=== PATIENT | female | born 1970 | race Caucasian/White ===

== ENCOUNTER 2019-08-01 08:37 | Emergency (ER) | payer MEDICARE ==
[~2019-08-01] VITALS: Ht 167.6 cm; Wt 122.9 kg
[~2019-08-01 08:37] MED LIST: ALMASICH; ALPR.5; ALUMAG30SU PO; AVONEX PEN30 MCG/0.5 IM; Alprazolam0.5 MG PO; BUME1 PO; CEPH500 PO; CHOL10002; CIPR500 PO; CLIN300; CLIN300 PO; Cleocin HCl300 MG PO; Cyclobenzaprine5 MG PO; DESV50; DESV50 PO; ESTR1; ESTR2 PO; FURO40; FURO80; FURO80 PO; HYDACE5; HYDACE5 PO; HYDR-86 PO; HYOS.125; IBUHYD PO; IBUP800 PO; INTE30I; INTE30I SC; KETO10 PO; MAGCHL64ER; MAGCIT300 PO; MAGNESIUM PO; METF500; METF500 PO; Maxalt10 MG; Moviprep Powde1 EACH; NUVIGIL150 MG; NUVIGIL50 MG; OMEP20ER PO; ONDA4ODT; ONDA4ODT MM; OXYACE5T; OXYACE5T PO; Omeprazole20 M1 PO; POTCHL10ER; POTCHL20ER; POTCHL20ER PO; PRED10 PO; PRED20 PO; PROM25; PROM25 PO; Percocet 5-3251 EACH PO; Phenergan25 M1 PO; Prednisone10 MG; Prednisone20 MG PO; RIZATRIPTAN10 MG PO; RIZATRIPTAN10 MG SL; SPIR25; SPIR25 PO; Spironolactone25 MG PO; TRAZ50; TRAZ50 PO; Trazodone HCl300 MG PO; VICODIN ES 7.51 EACH; Zofran Odt4 MG SL; [UNRECOGNIZED DRUG - REMARK]
[2019-08-01] MEDS ORDERED: Prazosin HCl2 MG PO (09:04)
[2019-08-01] MEDS ORDERED: Potassium Chlo20 ME1 PO (09:04)
[2019-08-01] MEDS ORDERED: DESVENLAFAXINE100 M3 PO (09:05)
[2019-08-01] MEDS ORDERED: TECFIDERA240 MG PO (09:05)
[2019-08-01] MEDS ORDERED: FURO80 PO (09:10)
[2019-08-01 09:21] LABS: Source, Urine Clean Catch
[2019-08-01 09:31] LABS: BASOPHILS ABSOLUTE AUTO 0.02 K/mm3 (0.00-0.23); BASOPHILS PERCENT AUTO 0 % (0-2); EOSINOPHILS ABSOLUTE AUTO 0.08 K/mm3 (0.00-0.68); EOSINOPHILS PERCENT AUTO 2 % (0-6); Hematocrit 45.2 % (33.0-51.0); IMMATURE GRAN ABSOLUTE AUTO 0.01 K/mm3 (0.00-0.10); IMMATURE GRAN PERCENT AUTO 0 % (0-1); LYMPHOCYTES ABSOLUTE AUTO 0.63 K/mm3 (0.84-5.20); LYMPHOCYTES PERCENT AUTO 12 % (21-46); MONOCYTES ABSOLUTE AUTO 0.62 K/mm3 (0.16-1.47); MONOCYTES PERCENT AUTO 12 % (4-13); Mean Corpuscular HGB 32.1 pg (26.0-34.0); Mean Corpuscular HGB Conc 35.4 g/dL (31.5-36.5); Mean Corpuscular Volume 91 fL (80-100); Mean Platelet Volume 10.3 fL (9.1-12.4); NEUTROPHILS ABSOLUTE AUTO 3.75 K/mm3 (1.96-9.15); NEUTROPHILS PERCENT AUTO 73 % (41-73); Platelet Count 200 K/mm3 (150-400); RDW Coefficient Variation 12.4 % (11.7-14.2); RDW Standard Deviation 40.9 fL (35.1-46.3); Red Blood Cell Count 4.98 M/mm3 (3.80-5.20); White Blood Cell Count 5.11 K/mm3 (4.00-11.30)
[2019-08-01 09:50] LABS: Alanine Aminotransfer (ALT/SGP 87 U/L (12-78); Albumin, Blood 4.7 g/dL (3.4-5.0); Albumin/Globulin Ratio 1.3 (0.8-1.8); Alk Phos 77 U/L (50-136); Anion Gap 7 mmol/L (6-16); Aspartate Aminotrans (AST/SGOT 52 U/L (12-37); Bilirubin, Total 0.7 mg/dL (0.1-1.0); Blood Urea Nitrogen 13 mg/dL (8-24); Bun/Creatinine Ratio 15.9 (12.0-20.0); CO2, Blood 26 mmol/L (21-32); Calcium, Blood 9.8 mg/dL (8.5-10.1); Chloride, Blood 102 mmol/L (98-108); Creatinine, Blood 0.82 mg/dL (0.40-1.00); Globulin, Blood 3.6 g/dL (2.2-4.0); Glomerular Filtration Rate >60 (60-); Glucose, Blood 127 mg/dL (70-99); Potassium, Blood 3.7 mmol/L (3.5-5.5); Sodium, Blood 135 mmol/L (136-145); Total Protein, Blood 8.3 g/dL (6.4-8.2)
[2019-08-01 09:51] LABS: Bilirubin, Urine Neg (Neg); Blood, Urine Neg (Neg); Glucose Qualitative, Urine Neg (Neg); Ketones, Urine 3+ (Neg); Leukocyte Esterase, Urine Neg (Neg); Nitrite, Urine Neg (Neg); Protein, Urine 2+ (Neg); Urobilinogen, Urine NORM (Normal)
[2019-08-01 10:25] LABS: Appearance, Urine Cloudy (Clear); Color, Urine Yellow (P-Yellow)
[2019-08-01 10:28] LABS: Bacteria Mod /hpf; Red Blood Cells, Urine 0-2 /hpf (0-2); Squamous Epithelial Cells Few /hpf (Few)
[2019-08-01] MEDS ORDERED: Robaxin-750750 MG PO (11:45)
[2019-08-01] MEDS ORDERED: Keflex500 MG PO (11:45)
[2019-08-01] MEDS ORDERED: Roxicodone5 MG PO (11:45)
== END 2019-08-01 13:05 | disposition home or self-care (01) ==
LOC: ER 08:37
PROVIDERS: Physician Assistant
DX: N39.0 Urinary tract infection, site not specified (principal); E11.43 Type 2 diabetes mellitus with diabetic autonomic (poly)neuropathy; K31.84 Gastroparesis; F17.210 Nicotine dependence, cigarettes, uncomplicated; Z88.2 Allergy status to sulfonamides; Z88.5 Allergy status to narcotic agent; Z88.8 Allergy status to other drugs, medicaments and biological substances; Z79.899 Other long term (current) drug therapy; Z79.84 Long term (current) use of oral hypoglycemic drugs
CPT/HCPCS: 36415; 74176; 80053; 81001; 83690; 85025; 87086; 96361; 96374; 96375; 99284-25; J0696; J1170; J1885; J2405

== ENCOUNTER → 2021-06-17 | Outpatient (CLI) | payer MEDICARE ==
[~2021-06-17] MED LIST changes: +DESVENLAFAXINE100 M3 PO; +Keflex500 MG PO; +Potassium Chlo20 ME1 PO; +Prazosin HCl2 MG PO; +Robaxin-750750 MG PO; +Roxicodone5 MG PO; +TECFIDERA240 MG PO
[2021-06-17 15:39] LABS: Microalb/Creat Ratio UR, Rand 30.778 mg/g (0.000-30.000); Microalbumin, Random Urine 5.54 mg/L (0.000-20.000)
[2021-06-17 15:43] LABS: U Amphetamine Screen Not Detected; U Barbituate Screen Not Detected; U Benzodiazapine Screen Not Detected; U Buprenorphine Screen Not Detected; U Cannabinoids Screen DETECTED; U Cocaine Screen Not Detected; U Methadone Screen Not Detected; U Methamphetamine Screen Not Detected; U Opiates Screen DETECTED; U Oxycodone Screen Not Detected; U Phencyclidine Screen Not Detected; U Propoxyphene Screen Not Detected
== END | disposition home or self-care (01) ==
LOC: LAB SHORT 13:23 → LAB 13:23
PROVIDERS: Nurse Practitioner Family
DX: E11.69 Type 2 diabetes mellitus with other specified complication (principal); Z79.899 Other long term (current) drug therapy
CPT/HCPCS: 82043; 82570

== ENCOUNTER → 2021-07-15 | Outpatient (CLI) | payer MEDICARE ==
[2021-07-15 13:29] LABS: U Amphetamine Screen Not Detected; U Barbituate Screen Not Detected; U Benzodiazapine Screen Not Detected; U Buprenorphine Screen Not Detected; U Cannabinoids Screen DETECTED; U Cocaine Screen Not Detected; U Methadone Screen Not Detected; U Methamphetamine Screen Not Detected; U Opiates Screen DETECTED; U Oxycodone Screen Not Detected; U Phencyclidine Screen Not Detected; U Propoxyphene Screen Not Detected
== END | disposition home or self-care (01) ==
LOC: LAB SHORT 09:45 → LAB 09:45 → LAB FUT 07-15 10:10
PROVIDERS: Nurse Practitioner Family
DX: E78.5 Hyperlipidemia, unspecified (principal); G89.4 Chronic pain syndrome; Z79.891 Long term (current) use of opiate analgesic
CPT/HCPCS: 82043

== ENCOUNTER → 2022-02-06 | Outpatient (CLI) | payer MEDICARE ==
[2022-02-06 17:26] LABS: U Amphetamine Screen Not Detected; U Barbituate Screen Not Detected; U Benzodiazapine Screen Not Detected; U Buprenorphine Screen Not Detected; U Cannabinoids Screen Not Detected; U Cocaine Screen Not Detected; U Methadone Screen Not Detected; U Methamphetamine Screen Not Detected; U Opiates Screen DETECTED; U Oxycodone Screen Not Detected; U Phencyclidine Screen Not Detected; U Propoxyphene Screen Not Detected
== END ==
LOC: LAB SHORT 15:53
PROVIDERS: Family Medicine
DX: Z79.899 Other long term (current) drug therapy (principal)